=== PATIENT | female | born 1985 | race Caucasian/White ===

== ENCOUNTER 2021-04-24 23:01 | Emergency (ER) | payer OTHER ==
[~2021-04-24] VITALS: Ht 149.9 cm; Wt 49.9 kg
[2021-04-24 23:07] VITALS: BP 115/72
[2021-04-24] MEDS ORDERED: BUPROPION HCL100 MG PO (23:10)
[2021-04-24] MEDS ORDERED: APAP W/CODEINE1 TA2 PO (23:22)
== END 2021-04-25 00:12 | disposition home or self-care (01) ==
LOC: M.ERS 23:01
DX: M25.532 Pain in left wrist (principal); M25.511 Pain in right shoulder; Z79.899 Other long term (current) drug therapy; W10.8XXA Fall (on) (from) other stairs and steps, initial encounter; Y93.K1 Activity, walking an animal; Y92.89 Other specified places as the place of occurrence of the external cause; Y99.8 Other external cause status